=== PATIENT | female | born 1945 | race Caucasian/White ===

== ENCOUNTER 2017-10-27 12:10 | Day surgery (SDC) | payer OTHER, MEDICARE ==
[~2017-10-27] VITALS: Ht 160 cm; Wt 90.7 kg
[~2017-10-27 12:10] MED LIST: FOLIC ACID0.4 MG PO; HYDROCHLOROTHIA25 MG PO; LEVOXYL50 MCG PO; LIPITOR20 MG PO; LITE COAT ASPI325 M1 PO; LOTREL 5/201 CAPSULE PO; PROTONIX20 MG PO; TOPROL XL50 MG PO; ZANTAC300 MG PO; [UNRECOGNIZED DRUG - OTHER] PO
[2017-10-27 12:48] VITALS: BP 129/84
[2017-10-27 19:00] VITALS: BP 121/68
[2017-10-27 20:00] VITALS: BP 129/73
[2017-10-27 21:54] VITALS: BP 138/78
== END 2017-10-27 22:20 | disposition home or self-care (01) ==
LOC: SDC 12:10
PROVIDERS: Neurological Surgery
DX: M51.16 Intervertebral disc disorders with radiculopathy, lumbar region (principal); M79.605 Pain in left leg; M67.48 Ganglion, other site; I10 Essential (primary) hypertension; E78.5 Hyperlipidemia, unspecified; R25.1 Tremor, unspecified; E66.9 Obesity, unspecified; Z68.36 Body mass index [BMI] 36.0-36.9, adult; Z88.0 Allergy status to penicillin; Z88.1 Allergy status to other antibiotic agents; Z88.8 Allergy status to other drugs, medicaments and biological substances; Z79.82 Long term (current) use of aspirin; Z82.49 Family history of ischemic heart disease and other diseases of the circulatory system; Z83.3 Family history of diabetes mellitus; Z82.3 Family history of stroke
CPT/HCPCS: 72020; 76000; 82948; 93005; J0131; J1100; J1170; J2250; J2405; J2710; J3010; J7643; S0020